=== PATIENT | male | born 1945 | race African-American/Black ===

== ENCOUNTER 2025-07-07 05:42 | Inpatient (IN) | payer MEDICARE ==
[2025-07-07 06:29] LABS: ALT (SGPT) 14 U/L (Less than 45); AST (SGOT) 20 U/L (11-34); Albumin 3.3 g/dL (3.1-4.5); Alkaline Phosphatase 238 U/L (40-110); Anion Gap 16 mmol/L (10-20); BUN (Urea Nitrogen) 33 mg/dL (8.4-25.7); Bilirubin, Total 0.5 mg/dL (0.3-1.2); Calc. Creatinine Clearance 0 mL/min (70-130); Calcium 8.8 mg/dL (7.8-10.44); Carbon Dioxide 25 mmol/L (23-31); Chloride 107 mmol/L (98-107); Globulin 3.1 g/dL (2.4-3.5); Glucose 120 mg/dL (83-110); Potassium 3.4 mmol/L (3.5-5.1); Sodium 145 mmol/L (136-145)
[2025-07-07 06:32] LABS: Actual Bicarbonate (HCO3v) 25.1 mEq/L (22-28); Analyzer IN Cardio CS ER; Base Excess 1.2 mEq/L (-2 - +2); Calcium, Ionized (venous) 1.08 mmol/L (1.16-1.32); Chloride (VBG) 104 mmol/L (98-106); Hematocrit-VBG 32 % (42.0-52.0); Hemoglobin (Hb) 10.9 g/dL (12.6-17.4); Potassium (VBG) 3.04 mmol/L (3.70-5.30); Puncture Site Other Site; RapidComm Collect By LAB; Sodium 144 mmol/L (133-146)
[2025-07-07 06:34] LABS: Hematocrit 33.9 % (38.8-50.0); Hemoglobin 9.5 g/dL (13.5-17.5); Mean Corpuscular Hemoglobin 22.7 pg (27.0-33.0); Mean Corpuscular Volume 81.1 fL (81.2-95.1); Platelet Count 351 10x3/uL (150-450); Red Blood Cell (RBC) Count 4.18 10x6/uL (4.32-5.72); White Blood Cell (WBC) Count 9.50 10x3/uL (3.5-10.5)
[2025-07-07 06:35] LABS: #Basophils Less than 0.03 10x3/uL (0.0-0.2); #Eosinophils Less than 0.03 10x3/uL (0.0-0.5); #Monocytes 0.99 10x3/uL (0.0-1.1); #Neutrophils 7.71 10x3/uL (1.5-8.4); %Basophils 0.2 % (0.0-2.0); %Eosinophils 0.2 % (0.0-6.0); %Lymphocytes 7.6 % (18.0-47.0); %Monocytes 10.4 % (0.0-10.0); %Neutrophils 81.2 % (40.0-75.0); Troponin I 0.124 ng/mL (< 0.028)
[2025-07-07 06:36] LABS: MDiff Complete? YES; Microcytosis SLIGHT = 6-15 cells (100X) (0-5/hpf); Platelet Adequacy Comment Appears Adequate
[2025-07-07] MEDS ORDERED: Nitroglycerin 2% Ointment 1 INCH/1 GM Packet ONE (06:45)
[2025-07-07] MEDS ORDERED: Furosemide 40 MG (4 mL) VIAL ONE (06:45)
[2025-07-07] MEDS ORDERED: Aspirin Chewable 81 MG TAB ONE (06:46)
[2025-07-07] MEDS ORDERED: Senokot S 8.6-50 MG TAB PO PRN (10:03)
[2025-07-07] MEDS ORDERED: Ondansetron PF 4 MG/2 ML Vial IVP PRN (10:03)
[2025-07-07 10:05] VITALS: BMI 31.4
[2025-07-07 10:20] LABS: Magnesium 2.0 mg/dL (1.6-2.6)
[2025-07-07 10:25] LABS: Troponin I 0.139 ng/mL (< 0.028)
[2025-07-07] MEDS: Acetaminophen 325 MG TAB PO PRN (11:55)
[2025-07-07 13:03] LABS: Anion Gap 14 mmol/L (10-20); BUN (Urea Nitrogen) 32 mg/dL (8.4-25.7); Calc. Creatinine Clearance 69 mL/min (70-130); Calcium 9.0 mg/dL (7.8-10.44); Carbon Dioxide 29 mmol/L (23-31); Chloride 107 mmol/L (98-107); Glucose 106 mg/dL (83-110); Potassium 3.8 mmol/L (3.5-5.1); Sodium 146 mmol/L (136-145)
[2025-07-07] MEDS: Furosemide 40 MG (4 mL) VIAL SLOW IVP SCH (13:06)
[2025-07-07] MEDS: Gabapentin 300 MG CAP PO SCH ×2 (13:07→20:16)
[2025-07-07] MEDS: HYDROcodone/Acetaminophen 5/325 mg Tablet PO SCH (13:07)
[2025-07-07 13:10] LABS: Troponin I 0.141 ng/mL (< 0.028)
[2025-07-07] MEDS: HumuLIN 70/30 100 Unit/ml 10 ml Vial SC SCH (17:37)
[2025-07-07] MEDS: Carvedilol 6.25 MG TAB PO SCH (20:15)
[2025-07-07] MEDS: FLU (Fluad Triv) 25-26 (65UP)PF 45 MCG/0.5 ML Syringe IM ONE (20:15)
[2025-07-07] MEDS: Melatonin 3 MG TAB PO PRN (22:27)
[2025-07-08 04:34] LABS: Anion Gap 17 mmol/L (10-20); BUN (Urea Nitrogen) 39 mg/dL (8.4-25.7); Calc. Creatinine Clearance 57 mL/min (70-130); Calcium 9.6 mg/dL (7.8-10.44); Carbon Dioxide 29 mmol/L (23-31); Chloride 106 mmol/L (98-107); Glucose 61 mg/dL (83-110); Potassium 4.0 mmol/L (3.5-5.1); Sodium 148 mmol/L (136-145)
[2025-07-08 04:52] LABS: #Basophils 0.03 10x3/uL (0.0-0.2); #Eosinophils Less than 0.03 10x3/uL (0.0-0.5); #Monocytes 1.04 10x3/uL (0.0-1.1); #Neutrophils 6.44 10x3/uL (1.5-8.4); %Basophils 0.4 % (0.0-2.0); %Eosinophils 0.2 % (0.0-6.0); %Lymphocytes 11.4 % (18.0-47.0); %Monocytes 12.2 % (0.0-10.0); %Neutrophils 75.6 % (40.0-75.0); Hematocrit 36.7 % (38.8-50.0); Hemoglobin 10.2 g/dL (13.5-17.5); Mean Corpuscular Hemoglobin 22.9 pg (27.0-33.0); Mean Corpuscular Volume 82.3 fL (81.2-95.1); Platelet Count 357 10x3/uL (150-450); Red Blood Cell (RBC) Count 4.46 10x6/uL (4.32-5.72); White Blood Cell (WBC) Count 8.52 10x3/uL (3.5-10.5)
[2025-07-08] MEDS: Allopurinol 100 MG TAB PO SCH (12:18)
[2025-07-08] MEDS: Aspirin 81 mg Enteric Coated Tablet PO SCH (12:19)
[2025-07-08] MEDS: Pantoprazole 40 MG DR.TAB PO SCH (12:20)
[2025-07-08] MEDS: HYDROcodone/Acetaminophen 5/325 mg Tablet PO PRN (15:38)
[2025-07-09 03:56] LABS: #Basophils Less than 0.03 10x3/uL (0.0-0.2); #Eosinophils 0.05 10x3/uL (0.0-0.5); #Monocytes 0.91 10x3/uL (0.0-1.1); #Neutrophils 5.60 10x3/uL (1.5-8.4); %Basophils 0.1 % (0.0-2.0); %Eosinophils 0.7 % (0.0-6.0); %Lymphocytes 9.6 % (18.0-47.0); %Monocytes 12.5 % (0.0-10.0); %Neutrophils 76.7 % (40.0-75.0); Hematocrit 35.1 % (38.8-50.0); Hemoglobin 9.8 g/dL (13.5-17.5); Mean Corpuscular Hemoglobin 22.6 pg (27.0-33.0); Mean Corpuscular Volume 81.1 fL (81.2-95.1); Platelet Count 322 10x3/uL (150-450); Red Blood Cell (RBC) Count 4.33 10x6/uL (4.32-5.72); White Blood Cell (WBC) Count 7.30 10x3/uL (3.5-10.5)
[2025-07-09 04:06] LABS: Anion Gap 14 mmol/L (10-20); BUN (Urea Nitrogen) 44 mg/dL (8.4-25.7); Calc. Creatinine Clearance 63 mL/min (70-130); Calcium 9.1 mg/dL (7.8-10.44); Carbon Dioxide 26 mmol/L (23-31); Chloride 106 mmol/L (98-107); Glucose 136 mg/dL (83-110); Potassium 3.9 mmol/L (3.5-5.1); Sodium 142 mmol/L (136-145)
[2025-07-09] MEDS ORDERED: Bumetanide 1 MG/4 ML VIAL IVP SCH (08:30)
[2025-07-09] MEDS: Finasteride 5 MG TAB PO SCH (12:22)
[2025-07-09] MEDS: Bumetanide 1 MG/4 ML VIAL IVP SCH (15:06)
[2025-07-10 04:25] LABS: #Basophils Less than 0.03 10x3/uL (0.0-0.2); #Eosinophils 0.08 10x3/uL (0.0-0.5); #Monocytes 0.90 10x3/uL (0.0-1.1); #Neutrophils 5.42 10x3/uL (1.5-8.4); %Basophils 0.3 % (0.0-2.0); %Eosinophils 1.1 % (0.0-6.0); %Lymphocytes 11.9 % (18.0-47.0); %Monocytes 12.3 % (0.0-10.0); %Neutrophils 74.0 % (40.0-75.0); Hematocrit 34.0 % (38.8-50.0); Hemoglobin 9.5 g/dL (13.5-17.5); Mean Corpuscular Hemoglobin 22.9 pg (27.0-33.0); Mean Corpuscular Volume 82.1 fL (81.2-95.1); Platelet Count 317 10x3/uL (150-450); Red Blood Cell (RBC) Count 4.14 10x6/uL (4.32-5.72); White Blood Cell (WBC) Count 7.32 10x3/uL (3.5-10.5)
[2025-07-10 04:37] LABS: Anion Gap 12 mmol/L (10-20); BUN (Urea Nitrogen) 49 mg/dL (8.4-25.7); Calc. Creatinine Clearance 64 mL/min (70-130); Calcium 8.9 mg/dL (7.8-10.44); Carbon Dioxide 28 mmol/L (23-31); Chloride 107 mmol/L (98-107); Glucose 135 mg/dL (83-110); Potassium 3.9 mmol/L (3.5-5.1); Sodium 143 mmol/L (136-145)
[2025-07-10] MEDS: Finasteride 5 MG TAB PO SCH (08:39)
[2025-07-11 04:00] LABS: #Basophils 0.03 10x3/uL (0.0-0.2); #Eosinophils 0.08 10x3/uL (0.0-0.5); #Monocytes 0.83 10x3/uL (0.0-1.1); #Neutrophils 5.64 10x3/uL (1.5-8.4); %Basophils 0.4 % (0.0-2.0); %Eosinophils 1.1 % (0.0-6.0); %Lymphocytes 12.0 % (18.0-47.0); %Monocytes 11.1 % (0.0-10.0); %Neutrophils 75.0 % (40.0-75.0); Hematocrit 33.4 % (38.8-50.0); Hemoglobin 9.4 g/dL (13.5-17.5); Mean Corpuscular Hemoglobin 23.1 pg (27.0-33.0); Mean Corpuscular Volume 82.1 fL (81.2-95.1); Platelet Count 335 10x3/uL (150-450); Red Blood Cell (RBC) Count 4.07 10x6/uL (4.32-5.72); White Blood Cell (WBC) Count 7.51 10x3/uL (3.5-10.5)
[2025-07-11 04:07] LABS: Anion Gap 14 mmol/L (10-20); BUN (Urea Nitrogen) 51 mg/dL (8.4-25.7); Calc. Creatinine Clearance 74 mL/min (70-130); Calcium 9.2 mg/dL (7.8-10.44); Carbon Dioxide 28 mmol/L (23-31); Chloride 106 mmol/L (98-107); Glucose 208 mg/dL (83-110); Potassium 3.9 mmol/L (3.5-5.1); Sodium 144 mmol/L (136-145)
[2025-07-11 13:37] LABS: % Free PSA 7.8 % (.); Total PSA 398.0 ng/mL (0.0-4.0)
[2025-07-11 16:34] LABS: Magnesium 2.3 mg/dL (1.6-2.6)
[2025-07-11] MEDS ORDERED: Glucagon 1 MG/ML KIT IM PRN (17:48)
[2025-07-11] MEDS ORDERED: Dextrose 50% Abboject 50 ML SYRINGE SLOW IVP PRN (17:48)
[2025-07-11] MEDS: Lantus 1000 UNITS/10 ML VIAL SC SCH (18:17)
[2025-07-12 08:26] LABS: Albumin 3.3 g/dL (3.1-4.5); Anion Gap 15 mmol/L (10-20); BUN (Urea Nitrogen) 47 mg/dL (8.4-25.7); BUN/Creatinine Ratio 41.96; Calc. Creatinine Clearance 72 mL/min (70-130); Calcium 9.5 mg/dL (7.8-10.44); Carbon Dioxide 29 mmol/L (23-31); Chloride 105 mmol/L (98-107); Glucose 179 mg/dL (83-110); Magnesium 2.2 mg/dL (1.6-2.6); Potassium 3.7 mmol/L (3.5-5.1); Sodium 145 mmol/L (136-145)
[2025-07-12 13:23] VITALS: BP 108/44; TEMP 98.1
== END 2025-07-12 13:23 | disposition home or self-care (01) | DRG 280 ==
LOC: CSHERS 05:42 → CSHTELE 07:38
PROVIDERS: ADMIT Internal Medicine; ATTEND Student in an Organized Health Care Education/Training Program
DX: I11.0 Hypertensive heart disease with heart failure (principal); I50.23 Acute on chronic systolic (congestive) heart failure; I21.A1 Myocardial infarction type 2; I62.00 Nontraumatic subdural hemorrhage, unspecified; N17.9 Acute kidney failure, unspecified; L97.929 Non-pressure chronic ulcer of unspecified part of left lower leg with unspecified severity; E78.5 Hyperlipidemia, unspecified; M10.9 Gout, unspecified; E11.42 Type 2 diabetes mellitus with diabetic polyneuropathy; Z79.899 Other long term (current) drug therapy; R19.00 Intra-abdominal and pelvic swelling, mass and lump, unspecified site; Z85.46 Personal history of malignant neoplasm of prostate
CPT/HCPCS: 36415; 36416; 70450; 71250; 74176; 80048; 80053; 80069; 82805; 83605; 83735; 83880; 84153; 84154; 84484; 85025; 87428; 93005; 93306; 93923; 93970; 96372; 96374; 97139; J1650; J1815; J1940; J3490